=== PATIENT | female | born 1955 | race Caucasian/White ===

== ENCOUNTER 2019-03-30 15:01 | Outpatient (CLI) | payer OTHER ==
--- NOTE | 2019-03-30 11:54 | MMO ---
Bilateral MAMMO Bilat Screen [facility]. CLINICAL HISTORY: Patient is 63 years old and is seen for screening. The patient has the following family history of breast cancer: 2 paternal aunts, at age 70. The patient has no personal history of cancer. VIEWS: The views performed were: bilateral craniocaudal with tomosynthesis and bilateral mediolateral oblique with tomosynthesis. FILMS COMPARED: The present examination has been compared to prior imaging studies performed at [facility] on 12/30/2012, 01/15/2015, 09/03/2016 and 12/15/2017. This study has been interpreted with the assistance of computer-aided detection. MAMMOGRAM FINDINGS: There are scattered fibroglandular densities. There are no suspicious masses, suspicious calcifications, or new areas of architectural distortion. IMPRESSION: THERE IS NO MAMMOGRAPHIC EVIDENCE OF MALIGNANCY. A ROUTINE FOLLOW-UP MAMMOGRAM IN 1 YEAR IS RECOMMENDED. THE RESULTS OF THIS EXAM WERE SENT TO THE PATIENT. ACR BI-RADS Category 1 - Negative MAMMOGRAPHY NOTE: 1. A negative mammogram report should not delay a biopsy if a dominant of clinically suspicious mass is present. 2. Approximately 10% to 15% of breast cancers are not detected by mammography. 3. Adenosis and dense breasts may obscure an underlying neoplasm. Reported by: TATI ROMAN MD Electonically Signed: [id number]
--- NOTE | 2019-03-30 15:36 | BD ---
Exam: DEXA Bone Density 03/30/19 HISTORY: Postmenopausal. Lumbar Spine: BMD (g/cm2) T-SCORE L1 0.932 -0.5 L2 0.912 -1.1 L3 0.957 -1.2 L4 1.009 -0.5 L1-L4 0.954 -0.8 Left Femoral Neck: 0.598 -2.3 Total Femur: 0.803 -1.1 Impression: 1. Osteopenia left femoral neck and normal bone mineral density of the lumbar spine. 2. Ten years fracture risk for a major osteoporotic fracture is 12% and hip fracture 2%. These f racture probabilities are calculated for an untreated patient. POS: [facility]
== END 2019-03-30 15:02 | disposition home or self-care (01) ==
LOC: BICMAMMO 15:01
PROVIDERS: ATTEND Family Medicine
DX: Z12.31 Encounter for screening mammogram for malignant neoplasm of breast (principal); M85.89 Other specified disorders of bone density and structure, multiple sites; Z80.3 Family history of malignant neoplasm of breast
CPT/HCPCS: 77063; 77067; 77080

== ENCOUNTER 2020-03-26 12:06 | Outpatient (CLI) | payer MEDICARE, OTHER ==
--- NOTE | 2020-03-26 13:44 | MRI ---
MRI LUMBAR SPINE NONCONTRAST: DATE: 03/26/2020 HISTORY: 64-year-old female with ICD-10: M 43.16 spondylolisthesis lumbar region, and low back pain COMPARISON: 08/13/2015 FINDINGS: There are 5 lumbar-type vertebrae. Vertebral body heights are maintained. There is moderate to severe disc space narrowing at L5-S1, and moderate disc space narrowing at T11-1 2. All other disc spaces are maintained. Conus medullaris terminates at lower L2. T12-L1:Normal L1-2:Normal L2-3:Essentially normal L3-4:Moderate bilateral facet DJD causes a mild grade 1 anterolisthesis of L3 on L4 which has slightl y progressed since prior MRI. Mild to moderate ligamentum flavum thickening. There is a new 0.9 x 0.8 x 0.8 cm right lateral extradural cyst located at the upper L4 level, that effaces the right side of the thecal sac, medially displacing right L4, L5, and S1 nerve roots within the thecal sac. This cyst occupies approximately 20-25% of the cross-sectional area of the spinal canal and thecal sa c. Overall, there is still no high-grade central spinal canal stenosis or thecal sac stenosis, despite the distortion of the right side of the thecal sac. No significant neural foraminal stenosis. L4-5:Mild facet osteoarthrosis. No central spinal canal stenosis. Minimal right and mild left neural foraminal stenosis. Mild disc bulge. L5-S1:Disc space narrowing has worsened, now moderate to severe. Minimal retrolisthesis of L5 on S1. Diffuse disc bulge. Mild right and mild to moderate left neural foraminal stenosis. No central stenosis. Endplate irregularity. Modic type II endplate marrow changes. IMPRESSION: 1) a new 9 mm right-sided synovial cyst within the right side of the spinal canal at the upper L4 lev el, chronically medially displacing nerve roots within the thecal sac. 2) mild grade 1 spondylolisthesis at L3-4 due to moderate bilateral facet osteoarthrosis. 3) moderate degenerative disc disease at L5-S1, worse since 08/13/2015. 4) the degenerative disc disease is minimal at all other levels in the lumbar spine. 5) no significant central spinal canal stenosis at any level.
--- NOTE | 2020-03-26 14:54 | RAD ---
LUMBAR SPINE RADIOGRAPHS 4 VIEWS: Date: 03/26/2020 PROVIDED CLINICAL HISTORY: Spondylolisthesis. FINDINGS: Five non-rib bearing lumbar-type vertebral bodies are demonstrated. There is Grade I anterolisthesis of L3 on L4, which increases in conspicuity with flexion and decreases in conspicuity with extension. No additional abnormal translational motion is evident. Vertebral body heights are preserved. Interv ertebral disc space heights are preserved. Multilevel facet arthritis. IMPRESSION: As above. POS: [facility]
== END 2020-03-26 12:07 | disposition home or self-care (01) ==
LOC: BICMRI 12:06
PROVIDERS: ATTEND Nurse Practitioner Family
DX: M43.16 Spondylolisthesis, lumbar region (principal); M47.816 Spondylosis without myelopathy or radiculopathy, lumbar region; M51.37 Other intervertebral disc degeneration, lumbosacral region; M51.36 Other intervertebral disc degeneration, lumbar region; M71.38 Other bursal cyst, other site
CPT/HCPCS: 36415; 72110; 72148; 80053; 85025; 85652; 86140

== ENCOUNTER 2022-08-05 09:48 | Outpatient (CLI) | payer MEDICARE, OTHER | END 2022-08-05 09:49 | disposition home or self-care (01) | LOC: BICMAMMO 09:48 | PROVIDERS: ATTEND Family Medicine | DX: Z12.31 Encounter for screening mammogram for malignant neoplasm of breast (principal); M85.9 Disorder of bone density and structure, unspecified; M85.80 Other specified disorders of bone density and structure, unspecified site; Z80.3 Family history of malignant neoplasm of breast | CPT/HCPCS: 77063; 77067; 77080 ==